=== PATIENT | male | born 1985 | race Caucasian/White ===

== ENCOUNTER 2018-03-24 21:42 | Emergency (ER) | payer OTHER ==
[~2018-03-24] VITALS: Ht 182.9 cm; Wt 97.1 kg
[~2018-03-24 21:42] MED LIST: ATIVAN1 MG PO; SERTRALINE HCL100 MG PO; WELLBUTRIN SR150 MG PO
[2018-03-25] MEDS ORDERED: DESVENLAFAXINE50 M2 PO (00:38)
[2018-03-25] MEDS ORDERED: CYCLOBENZAPRINE10 MG PO (00:58)
[2018-03-25] MEDS ORDERED: NORCO 5-325 TA1 EACH PO (00:58)
== END 2018-03-25 01:34 | disposition home or self-care (01) ==
LOC: ED 21:42
DX: S39.012A Strain of muscle, fascia and tendon of lower back, initial encounter (principal); I10 Essential (primary) hypertension; F32.9 Major depressive disorder, single episode, unspecified; F41.9 Anxiety disorder, unspecified; Z88.0 Allergy status to penicillin; Z79.899 Other long term (current) drug therapy; X50.9XXA Other and unspecified overexertion or strenuous movements or postures, initial encounter; Y93.64 Activity, baseball
CPT/HCPCS: 99283